=== PATIENT | male | born 1950 | race Caucasian/White ===

== ENCOUNTER 2025-10-02 16:58 | Emergency (ER) | payer OTHER, MEDICARE, MEDICAID ==
[~2025-10-02] VITALS: Ht 180.3 cm; Wt 63.6 kg
[2025-10-02 17:03] VITALS: BP 120/65; PULSE 60; RESP 18; TEMP 98.6; O2SAT 97
--- NOTE | 2025-10-02 18:08 | DVH ---
Indication: epig pain Technique: CT axial images of the abdomen and pelvis are obtained without contrast. Coronal and sagittal reformats were obtained. Radiation Dose Information: CTDI volume is 6 mGy. Dose-length product is 341 mGy*cm Comparison: None FINDINGS: Examination degraded by motion. There is limited interpretation of the abdomen and pelvis without administration of intravenous contrast. The lung bases demonstrate atelectatic changes. Developing right lower lobe pulmonary airspace consolidation. The adrenal glands unremarkable in shape. Spleen enlarged measuring 14.1 cm craniocaudal. Pancreas unremarkable in shape. Right hepatic lobe hypodense lesion measuring 7.9 x 7.3 cm. Right hepatic dome hypodense lesion measuring 3.2 cm. liver capsule nodular morphology. 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 Gallbladder contracted. Kidneys demonstrate no hydronephrosis. Indeterminate right renal exophytic lesion measuring 2.2 cm. Nonobstructing right renal calculi up to 8 mm. Nonobstructing left renal calculi up to 2 mm. Stomach is moderately distended. Small bowel loops are normal in caliber. Large volume stool within the colon. Normal appendix. Abdominal aortic atherosclerotic disease. Bladder partially distended. Prostate measures 4.7 cm transversely. No free pelvic fluid. Subcentimeter inguinal lymph nodes bilaterally. [id number] thoracolumbar degenerative disc disease. IMPRESSION: Limited evaluation without contrast. Examination is also severely degraded by motion. Cirrhotic morphology appearance of the liver. Hypodense lesion in the right hepatic lobe measuring 7.9 x 7.3 cm as well as right hepatic dome hypodense lesion measuring 3.2 cm. Recommend multiphasic MRI abdomen with and without contrast to evaluate for liver mass/ neoplasm and other etiologies. Sequela of portal hypertension including gastric, perisplenic varices, splenomegaly. Large volume stool in the colon. Developing right lower lobe pulmonary airspace consolidation. Indeterminate right renal midpole exophytic lesion measuring 2.2 cm. Recommend MRI abdomen with and without contrast to further evaluate. Bilateral nonobstructing renal calculi. Other findings as described.
[2025-10-02 18:18] LABS: Hematocrit 37.6 % (41.0-53.0); Hemoglobin 12.8 g/dL (13.5-17.5); Mean Corpuscular Hemoglobin 32.7 pg (28.0-32.0); Mean Corpuscular Volume 96.0 fL (80.0-100.0); Nucleated Red Blood Cells % 0.1 %
--- NOTE | 2025-10-02 18:19 | ED.PDOC ---
GI ASSESSMENT HPI Comments Mr. Banks is a 75-year-old male with prior medical history of untreated hepatitis- C, multiple strokes, and pacemaker placed for an unspecified reason, who presents today [facility] with chief complaint of abdominal pain. The patient is a very poor historian, history was taken from his daughter Jonn Dowd. History is limited given that both are poor historians She states that the patient has been complaining of lower quadrant abdominal pain for approximately 2 days, states it is sharp, denies nausea, vomiting, fever, diarrhea, bloody bowel movements, changes in appetite, chest pain, shortness of breath, and other symptoms. She states that approximately 2 weeks ago he had similar complaints which resolved on their own. She reports that the patient is currently undergoing workup for liver masses found on a previous CT and is pending a liver biopsy on November 05. On initial evaluation, the patient is uncooperative, hemodynamically stable, without overt signs of distress. Chief Complaint: Abdominal Pain Time Seen by MD: 17:20 Allergies: Coded Allergies: NO KNOWN ALLERGIES (Unverified , 10/02/25) Information Source: Relative (Child) Mode of Arrival: EMS Timing: Days Duration: Since onset Quality: Sharp Vomitus: None Stool: Normal Severity: Mild Recent: None Recent Hx of: Liver Disease Pain Location: RLQ, LLQ Modifying Factors: Nothing Past Medical History PAST MEDICAL HISTORY: CVA Past Medical History (Other): Untreated hepatitis-C, patient has a pacemaker Surgical History (Other): Partial nephrectomy Family History Family History: Unobtainable Social History Smoker: Less Than 1 Pack/Day Alcohol: Sober Drugs: Other (Daughter states that the patient has previous history of polysubstance does not specify which substances) Lives In: Home Gastrointestinal: reports: abdominal pain; denies: blood streaked bowels, constipated, diarrhea, dysphagia, difficulty swallowing, hematemesis, melena, nausea, poor appetite, poor fluid intake, rectal bleeding, vomiting Unable to Obtain due to: Other (Patient is uncooperative only refers abdominal pain and denies nausea, vomiting, diarrhea, and fever) Physical Exam General Appearance: Mild Distress HEENT: Normal ENT Inspection, PERRL/EOMI, Pharynx Normal Neck: Full Range of Motion, Non-Tender, Normal Inspection Respiratory: Chest Non-Tender, Lungs Clear, No Accessory Muscle Use, No Respiratory Distress, Normal Breath Sounds Cardiovascular: No Edema, No Murmur, Normal Peripheral Pulses, Regular Rate/Rhythm Breast Exam: Deferred Gastrointestinal: Non Tender, Normal Bowel Sounds, Soft Genitalia: Deferred Pelvic: Deferred Rectal: Deferred Extremities: Normal capillary refill, Normal inspection, Normal range of motion, Non-tender, No pedal edema Neurologic: Other (Patient with flat affect, is responsive to environment, is minimally cooperative) Cerebellar Function: Unable to Test Reflexes: NOT DONE Skin: Normal Color Peripheral Pulses: 2+ dorsalis pedis (R), 2+ dorsalis pedis (L) Lymphatic: Other (No cervical adenopathy ) Was a procedure done? Was a procedure done?: No GI differential Dx Differential Diagnosis: AAA, Appendicitis, Angina/AZ, Bowel Obstruction, Cholangitis, Cholecystitis, Constipation, Diverticular disease, Gastritis/PUD, Gastroenteritis, GI hemorrhage, Hernia, Hepatitis, Ischemic Bowel, Pancreatitis, Urinary Obstruction, Urolithiasis, Dehydration, Ischemic Bowel X-Ray, Labs, Meds, VS Vital Signs Date Time Temp Pulse Resp B/P (MAP) Pulse Ox O2 Delivery O2 Flow Rate FiO2 10/02/25 17:03 98.6 60 18 120/65 97 98.6 Lab Test 10/02/25 17:44 Range/Units White Blood Count 5.6 4.4-10.8 10^3/uL Red Blood Count 3.92 L 4.5-5.90 10^6/uL Hemoglobin 12.8 L 13.5-17.5 g/dL Hematocrit 37.6 L 41.0-53.0 % Mean Corpuscular Volume 96.0 80.0-100.0 fL Mean Corpuscular Hemoglobin 32.7 H 28.0-32.0 pg Mean Corpuscular Hemoglobin Concent 34.0 32.0-36.0 g/dL Red Cell Distribution Width 15.2 H 11.8-14.3 % Platelet Count 197 140-450 10^3/uL Mean Platelet Volume 7.5 6.9-10.8 fL Neutrophils (%) (Auto) 66.7 37.0-80.0 % Lymphocytes (%) (Auto) 14.6 10.0-50.0 % Monocytes (%) (Auto) 14.0 H 0.0-12.0 % Eosinophils (%) (Auto) 4.1 0.0-7.0 % Basophils (%) (Auto) 0.6 0.0-2.0 % Neutrophils # (Auto) 3.8 1.6-8.6 10 ^3/uL Lymphocytes # (Auto) 0.8 0.4-5.4 10 ^3/uL Monocytes # (Auto) 0.8 0-1.3 10 ^3/uL Eosinophils # (Auto) 0.2 0-0.8 10 ^3/uL Basophils # (Auto) 0 0-0.2 10 ^3/uL Nucleated Red Blood Cells 0.1 % Sodium Level 137 136-145 mmol/L Potassium Level 4.7 3.5-5.1 mmol/L Chloride Level 105 98-107 mmol/L Carbon Dioxide Level 24 20-31 mmol/L Anion Gap 8 5-15 Blood Urea Nitrogen 12 9-23 mg/dL Creatinine 0.83 0.700-1.30 mg/dL Glomerular Filtration Rate Calc 90 >90 mL/min BUN/Creatinine Ratio 14.5 10.0-20.0 Serum Glucose 77 74-106 mg/dL Lactic Acid Level 1.6 0.4-2.0 mmol/L Calcium Level 8.8 8.7-10.4 mg/dL Total Bilirubin 1.0 0.2-1.0 mg/dL Aspartate Amino Transferase (AST) 62 H 13-40 U/L Alanine Aminotransferase (ALT) 21 7-40 U/L Alkaline Phosphatase 158 H 46-116 U/L Troponin I High Sensitivity 40 </=54 ng/L Total Protein 7.6 5.7-8.2 g/dL Albumin 3.5 3.2-4.8 g/dL Lipase 60 H 12-53 U/L Time of 1ST Reevaluation: 19:30 Reevaluation 1ST: Unchanged Patient Education/Counseling: Diagnosis, Treatment Family Education/Counseling: Diagnosis, Treatment Comments The patient presents today via EMS due to abdominal pain On initial evaluation, the patient is uncooperative and hemodynamically Physical examination is limited due to patient's lack of cooperation, however without positive findings CBC significant for normocytic anemia, CMP significant for AST 62, ALT 158, and lipase [address] shows cirrhotic morphology appearance of the liver, hypodense lesion in the right hepatic lobe measuring 7.9 x 7.3 cm as well as right hepatic dome hypodense lesion measuring 3.2 cm, sequela of portal hypertension including gastric, perisplenic varices, splenomegaly, large volume stool in the colon, developing right lower lobe pulmonary airspace consolidation, Indeterminate right renal midpole exophytic lesion measuring 2.2 cm. Due to presence of lung consolidation, the patient has been started on Rocephin 1g IV. The patient will be admitted for further work up and IV antibiotic treatment. SEPSIS Sepsis Screen Date sepsis recognized/suspect: Oct 02, 2025 Time Sepsis recognized/suspect: 1704 Recent Procedure: No On Antibiotic Therapy: No Respiratory Rate >20: No Heart Rate >90: No Temp<36 C (96.8 F) or >38.3 C: No SBP <90 or MAP <65 mmHG: No New Acute Mental Status Change: No Is the patient on CPAP, BIPAP,: No Physician Orders Urology Teacher (10/02/25 ) Urinalysis (10/02/25 17:22) Electrocardigram (10/02/25 17:22) Ct Ab Pel Wo Con-No Oral Or Iv (10/02/25 17:22) Troponin-I Hs (10/02/25 18:22) Troponin-I Hs (10/02/25 20:22) Vital Signs Date Time Temp Pulse Resp B/P (MAP) Pulse Ox O2 Delivery O2 Flow Rate FiO2 10/02/25 17:03 98.6 60 18 120/65 97 98.6 Laboratory Tests Test 10/02/25 17:44 Lactic Acid Level 1.6 mmol/L (0.4-2.0) White Blood Count 5.6 10^3/uL (4.4-10.8) Departure 1 Departure Time of Disposition: 19:40 Impression: Primary Impression: Intractable abdominal pain Disposition: 30 STILL A PATIENT Admit to: Med Surg Condition: Stable Critical Care Note Critical Care Time?: No Stability Stability form required: CHEMA Pratt RESIDENT Oct 02, 2025 18:19
[2025-10-02 18:25] LABS: Alanine Aminotransferase 21 U/L (7-40); Albumin 3.5 g/dL (3.2-4.8); Anion Gap 8 (5-15); BUN/Creatinine Ratio 14.5 (10.0-20.0); Blood Urea Nitrogen 12 mg/dL (9-23); Calcium 8.8 mg/dL (8.7-10.4); Carbon Dioxide 24 mmol/L (20-31); Chloride 105 mmol/L (98-107); Glucose 77 mg/dL (74-106); Potassium 4.7 mmol/L (3.5-5.1); Sodium 137 mmol/L (136-145); Total Protein 7.6 g/dL (5.7-8.2)
[2025-10-02 18:26] LABS: Bilirubin, Total 1.0 mg/dL (0.2-1.0)
[2025-10-02 18:27] LABS: Alkaline Phosphatase 158 U/L (46-116); Lipase 60 U/L (12-53)
== END 2025-10-02 20:33 | disposition left against medical advice (07) ==
LOC: ER 16:58 → EDBD 16:58 → ER 20:33
DX: R10.84 Generalized abdominal pain (principal); F17.210 Nicotine dependence, cigarettes, uncomplicated; Z86.73 Personal history of transient ischemic attack (TIA), and cerebral infarction without residual deficits; Z95.0 Presence of cardiac pacemaker; Z90.5 Acquired absence of kidney
CPT/HCPCS: 36415; 74176; 80053; 83605; 83690; 84484; 85025